=== PATIENT | female | born 1990 | race Caucasian/White ===

== ENCOUNTER → 2025-11-03 | Outpatient (CLI) | payer OTHER, SELFPAY ==
--- NOTE | 2025-11-03 06:54 | MRI_ITS ---
PROCEDURE: BRAIN W/WO CONTRAST 11/03/2025 REASON FOR EXAM: Clinical history of hypersomnia. TECHNIQUE: Procedure Code: MRIBRWW Modality: MR Procedure: BRAIN W/WO CONTRAST Multiplanar and multisequence images were obtained. CONTRAST: Clariscan VOLUME: 15 mL COMPARISON: None available. FINDINGS: No acute infarct or hemorrhage. The brain parenchyma is within normal limits. There is no pathologic intracranial enhancement. No extra-axial fluid collection. No significant mass effect or herniation of the brain. The ventricular system and sulci/fissures are within expected limits of size and configuration for the patient's stated age. The basal cisterns are patent. The intracranial large vessel arterial flow voids are maintained. The mastoid air cells clear. There is scattered paranasal mucosal thickening. Left nasal septal deviation. The orbits are unremarkable. The calvarial bone marrow signal is within normal limits. MRI/Brain W/WO Contrast IMPRESSION: No acute infarct, hemorrhage, significant mass effect, or enhancing intracrania l lesion. Reading Location: [id number]
== END | disposition home or self-care (01) ==
LOC: OPMRI 09:33
DX: G47.10 Hypersomnia, unspecified (principal); G47.52 REM sleep behavior disorder
CPT/HCPCS: 70553; A9575